=== PATIENT | male | born 1985 | race Caucasian/White ===

== ENCOUNTER 2020-07-30 06:50 | Inpatient (IN) ==
[2020-07-30] MEDS ORDERED: IOPAMIDOL 100 ML BOTTLE IV ONE (06:51)
[2020-07-30] MEDS ORDERED: LACTATED RINGERS 1,000 ML IV ONE ×2 (07:18→07:20)
[2020-07-30] MEDS ORDERED: PROCHLORPERAZINE 10 MG/2 ML VIAL IV ONE (07:18)
[2020-07-30] MEDS ORDERED: diphenhydrAMINE 50 MG/ML VIAL IV ONE (07:18)
--- NOTE | 2020-07-30 07:18 | Emergency Department Note ---
Abdominal Pain HPI General Chief Complaint: Abdominal Pain Stated Complaint: abdominal pain Time Seen by Provider: 07/30/20 07:10 Source: patient Mode of arrival: ambulatory Limitations: no limitations History of Present Illness HPI Narrative: Narrative: Patient is a pleasant 35-year-old male who presents complaint of significant abdominal pain since yesterday morning. He noted that he had been out for a weekend with friends and 2 days ago was feeling perhaps some generalized upset stomach which he had attributed to drinking with friends. The pain progressed and since 24 hours ago has had more significant pain which she notes is worse with getting up and moving about better when he is lying still. He has had decreased appetite but no vomiting. He has not had any burning with urination. Pain seems to be lower in the abdomen but then radiate upwards at this time. No radiation to the back. Notes for moderate degree of discomfort lying still more severe with movements. He was able to notice even minor bumps in the road on the drive to the emergency department today. He has not had fever. He denies any trauma to the abdomen. He has not had prior abdominal surgery. Related Data Home Medications Medication Instructions Recorded Confirmed No Known Home Meds 07/30/20 07/30/20 Allergies Allergy/AdvReac Type Severity Reaction Status Date / Time No Known Drug Allergies Allergy Verified 07/30/20 16:02 Review of Systems ROS ROS Narrative: Narrative: A 10 system review of systems was performed and found to be negative except as outlined above. [facility] Narrative Patient History Narrative: Narrative: Medical/Surgical/Family History All Active Problems (Updated 07/31/20 @ 09:07 by Lance Chance MD) Diverticulitis (Acute) Abdominal pain (Acute) Conjunctivitis (Acute) Poor sleep (Chronic) Depression (Chronic) Anxiety (Chronic) IBS (irritable bowel syndrome) (Chronic) Physical exam (Chronic) Impacted cerumen, bilateral (Chronic) Medical History (Updated 07/31/20 @ 09:07 by Lance Chance MD) Anxiety Depression IBS (irritable bowel syndrome) Impacted cerumen, bilateral Physical exam Poor sleep Surgical History History of surgery (~10/25/06) C3-C4 Family History Mother Alive and well Father Alive and well Sister Alive and well Brother Alive and well Social History Smoking Status: Never smoker Alcohol Intake Frequency: holiday/special occasion only Exam Narrative Narrative: Narrative: General: Alert, speaking full sentences without dyspnea. Lying still on the gurney. Accompanied by his Indy COPEENT: NCAT, PERRL, Oral pharynx with moist mucus membranes. No pharyngeal erythema. No conjunctival pallor Neck: Supple, No lymphadenopathy Chest: Stable Heart: Regular rate and rhythm without murmur Lungs: Clear to auscultation bilaterally Abdomen: Soft, nondistended, generalized discomfort to palpation which is most focused over McBurney's point. Positive rebound tenderness. Positive peritonitis. Negative Rovsing sign. : No bladder distention Back: Nontraumatic, No CVA tenderness to palpation. Skin: No rash or lesion Extremity: No cyanosis or edema, pulses 2+ radial Neurologic: Moves all extremities in appropriate coordinated fashion. General Limitations: no limitations Course Vital Signs Vital signs: Vital Signs Temperature 97.0 F 07/30/20 06:50 Pulse Rate 90 07/30/20 06:50 Respiratory Rate 16 07/30/20 06:50 Blood Pressure 122/79 07/30/20 06:50 Pulse Oximetry (%) 98 07/30/20 06:50 Temperature 98.9 F 07/31/20 08:00 Pulse Rate 77 07/31/20 08:00 Respiratory Rate 18 07/31/20 08:00 Blood Pressure 109/68 07/31/20 08:00 Pulse Oximetry (%) 95 07/31/20 08:00 [facility] MDM Narrative Medical decision making narrative: Narrative: Patient is with clinical evidence of appendicitis. Will complete work-up and ensure that this is not mesenteric adenitis or ascending colitis from etiology such as Crohn's or ulcerative colitis which patient does not give history consistent with. Patient will receive IV antibiotics and surgical consult with admission for acute abdomen. Patient CT demonstrated sigmoid diverticulitis with phlegmon as well as evidence of perforation consistent with physical exam. Dr. Dangelo Rueda was kindly in agreement with plan of admission Patient had ECG time 746 demonstrating sinus rhythm the rate of 62. QRS axis with normal QRS duration normal and narrow. There were no ST or T wave changes concerning for ischemic process. Lab Data Result diagrams: 07/30/20 07:55 07/30/20 07:55 Labs: Lab Results 07/30/20 07/30/20 07/30/20 Range/Units 07:55 07:55 07:55 WBC 10.9 (4.5-11.0) K/mcL RBC 4.36 L (4.50-5.90) M/mcL Hgb 13.4 L (13.5-16.5) g/dL Hct 39.7 L (41.0-55.0) % MCV 91.1 (80.0-100.0) fL MCH 30.7 (26.0-34.0) pg MCHC 33.8 (31.0-36.0) g/dL RDW 12.4 (11.5-14.5) % Plt Count 110 L (140-440) K/mcL MPV 12.0 H (7.4-10.4) fL Neut % (Auto) 82.0 H (38.0-78.0) % Lymph % (Auto) 11.6 L (15.0-49.0) % Sutter % (Auto) 6.2 (1.0-12.0) % Eos % (Auto) 0 (0.0-7.0) % Baso % (Auto) 0.2 (0.0-2.0) % Lymph # (Auto) 1.26 L (1.50-4.80) K/mcL Sutter # (Auto) 0.67 (0.10-0.90) K/mcL Eos # (Auto) 0 (0.00-0.70) K/mcL Baso # (Auto) 0.02 (0.00-0.20) K/mcL Absolute Neutrophils 8.90 H (1.80-8.00) K/mcL Sodium 137 (133-145) mmol/L Potassium 4.0 (3.3-5.1) mmol/L Chloride 104 (96-108) mmol/L Carbon Dioxide 23 (22-30) mmol/L Anion Gap 10.0 (8.0-16.0) BUN 15 (6-20) mg/dL Creatinine 1.0 (0.7-1.2) mg/dL GFR Calculation 97 Glucose 102 (70-105) mg/dL Calcium 9.1 (8.6-10.4) mg/dL Total Bilirubin 0.7 (0.1-1.0) mg/dL AST 12 (<40) U/L ALT 13 (<40) U/L Alkaline Phosphatase 51 (39-117) U/L Troponin T < 0.01 (<0.03) ng/mL Total Protein 6.2 (5.9-8.4) gm/dL Albumin 3.9 (3.2-5.2) gm/dL Globulin 2.3 (2.2-3.7) gm/dL Albumin/Globulin Ratio 1.7 (1.0-2.3) Lipase 17 (7-60) U/L ED POC Tests ED POC Tests: LENIN - SARS Antigen Negative Discharge Plan Patient/Caregiver Discharge Instructions Pt seen by [facility]/PA only: No Clinical Impression: Diverticulitis, Abdominal pain Patient Disposition: Xfer As Outpt/Obs ([facility]) Condition: Fair Discharge Date/Time: 07/30/20 15:20
[2020-07-30 08:59] LABS: Basophils # (Auto) 0.02 K/mcL (0.00-0.20); Basophils % (Auto) 0.2 % (0.0-2.0); Eosinophils # (Auto) 0 K/mcL (0.00-0.70); Eosinophils % (Auto) 0 % (0.0-7.0); Hematocrit 39.7 % (41.0-55.0); Hemoglobin 13.4 g/dL (13.5-16.5); Lymphocytes # (Auto) 1.26 K/mcL (1.50-4.80); Lymphocytes % (Auto) 11.6 % (15.0-49.0); Mean Cell Volume 91.1 fL (80.0-100.0); Mean Corpuscular HGB Conc 33.8 g/dL (31.0-36.0); Monocytes # (Auto) 0.67 K/mcL (0.10-0.90); Monocytes % (Auto) 6.2 % (1.0-12.0); Platelet Count 110 K/mcL (140-440); RBC 4.36 M/mcL (4.50-5.90); Red Cell Distribution Width 12.4 % (11.5-14.5); WBC 10.9 K/mcL (4.5-11.0)
[2020-07-30 09:08] LABS: ALT/SGPT 13 U/L (<40); AST/SGOT 12 U/L (<40); Albumin 3.9 gm/dL (3.2-5.2); Albumin/Globulin Ratio 1.7 (1.0-2.3); Alkaline Phosphatase 51 U/L (39-117); Bilirubin,Total 0.7 mg/dL (0.1-1.0); Blood Urea Nitrogen 15 mg/dL (6-20); Calcium 9.1 mg/dL (8.6-10.4); Carbon Dioxide 23 mmol/L (22-30); Chloride 104 mmol/L (96-108); Globulin 2.3 gm/dL (2.2-3.7); Glomerular Filtration Rate 97; Glucose 102 mg/dL (70-105)
--- NOTE | 2020-07-30 10:14 | Cat Scan Report ---
CLINICAL INFORMATION: Lower abdominal pain COMPARISON: None. TECHNIQUE: Following enteric contrast, 80 cc of Isovue-370 were injected intravenously, and 60 seconds later, 0.625 mm helical slices were obtained from the mid heart through the subtrochanteric regions. Following reconstruction, 2.5 mm sagittal, coronal and axial reformatted images were processed and reviewed at bone, lung and soft tissue windows. Five minutes later, 0.625 mm helical slices were obtained from the mid heart through the kidneys and viewed at soft tissue windows.The exam was performed using radiation dose optimization techniques including, but not limited to, automated exposure control, adjustment of the mA and/or kV according to patient size and use of iterative reconstruction technique. FINDINGS: Lung bases show no abnormality-no effusion. The visualized heart is normal. Abdominal images show minimal fatty change within the liver, but no focal hepatic lesion. Gallbladder and bile ducts are normal CBD is 5 mm. Tiny (2 mm) nonobstructing stones are seen within the inferior calyces of both kidneys. No other renal abnormality. Both adrenal glands, spleen, pancreas and aorta, including aortic branches are normal in size configuration and attenuation without focal lesion. Pelvic images show prostate, seminal vesicles and urinary bladder are normal. There is mild diffuse wall thickening of the urinary bladder. Moderate diverticulitis involving a 6 cm segment of the mid sigmoid colon appreciated. In this region, there are multiple sigmoid diverticuli with alignment wall thickening and a 5 cm phlegmon in the anterior perisigmoid fat. Small amount of extracolonic gas is compatible with microperforation. Small amount of free fluid in the deep true pelvis is limited to the sigmoid colon inflammation. The remaining large bowel, and small bowel are normal. The appendix is located in a very high position in the medial pericecal region adjacent the liver. Stomach is grossly normal. Bone windows show no osseous abnormality IMPRESSION: Moderate diverticulitis involving the mid sigmoid colon with a 5 cm phlegmon in the anterior perisigmoid fat and colonic microperforation. Tiny nonobstructing stones within the inferior calyces of both kidneys-both less than 2 mm Mild diffuse urinary bladder wall thickening is likely sympathetic related adjacent sigmoid inflammation. Please correlate urinalysis to ensure the absence of cystitis. Interpreted and Authenticated by: Sacha Pérez 07/30/20
[2020-07-30] MEDS ORDERED: CIPROFLOXACIN 400 MG/200 ML BAG IV ONE (10:38)
[2020-07-30] MEDS ORDERED: metroNIDAZOLE 500 MG/100 ML BAG IV SCH ×3 (10:45→16:00)
[2020-07-30] MEDS: ONDANSETRON 4 MG/2 ML VIAL IV PRN ×2 (11:05→17:34)
[2020-07-30] MEDS: HYDROmorphone 0.5 MG/0.5 ML SYRINGE IV PRN ×4 (11:05→23:26)
[2020-07-30] MEDS ORDERED: morphine 4 MG/ML VIAL IV PRN (13:46)
[2020-07-30] MEDS ORDERED: ONDANSETRON 4 MG/2 ML VIAL IV PRN (13:46)
--- NOTE | 2020-07-30 13:46 | General Surg History&Physical ---
HPI History of Present Illness Patient information: Note initiated : 07/30/20 at 1:42 pm Service Date, if different from initiated Date: [] Patient: Leonela Ernst a 35 y/o M admitted on for Abdominal Pain . Chief Complaint: Bilateral lower quadrant abdominal pain History of present illness: Mr. Ernst is a 35 year old M who presents with 1 day history of slowly progressing bilateral lower quadrant abdominal pain. Reports he had a similar episode a few months ago, not as severe and resolved on its own. He reports that this 1 came on is gradually gotten worse not associated with nausea vomiting fevers or chills. He reports that as mid to mor e on the right side, however he is tender on both sides of the lower abdomen. He reports a positive family history of a mother with diverticulitis. Review of Systems Review of systems: All systems are reviewed, negative other than above PFSH PFSH All Active Problems Acute appendicitis (Acute) Conjunctivitis (Acute) Poor sleep (Chronic) Depression (Chronic) Anxiety (Chronic) IBS (irritable bowel syndrome) (Chronic) Physical exam (Chronic) Impacted cerumen, bilateral (Chronic) Medical History Anxiety Depression IBS (irritable bowel syndrome) Impacted cerumen, bilateral Physical exam Poor sleep Surgical History History of surgery (~10/25/06) C3-C4 Family History Mother Alive and well Father Alive and well Sister Alive and well Brother Alive and well Social History marital status: physical activity: weight training alcohol intake frequency: holiday/special occasion only MEDS/ALLERGIES Home Medications and Allergies Home Medications Medication Instructions Recorded Confirmed Type No Known Home Meds 07/30/20 07/30/20 History Allergies Allergy/AdvReac Type Severity Reaction Status Date / Time No Known Drug Allergies Allergy Verified 07/30/20 06:52 Physical Examination Vital Signs Vital signs: Temp Pulse Resp BP Pulse Ox 97.0 F 90 16 109/64 98 07/30/20 06:50 07/30/20 06:50 07/30/20 06:50 07/30/20 13:32 07/30/20 06:50 General physical appearance General physical exam: well developed, well nourished and no distress Eyes Eye exam: PERRL and normal ocular movement ENT ENT exam: normal pinna, normal nares, normal mucosa, no hearing loss and no congestion Head Head exam IM: Present atraumatic and normocephalic Neck Neck exam: no masses, no bruits, trachea midline, no lymphadenopathy and no venous distension Cardiovascular Cardiovascular exam IM: Present normal rate and rhythm Respiratory Respiratory exam: normal expansion, normal respiratory effort, clear to percussion and clear to auscultation Abdomen Abdomen: Present soft, tender (Tender to palpation bilateral lower quadrants, no rebound) and bowel sounds; Absent rigid and rebound Hernia: Present none Genitourinary Genitourinary (Male): Present normal penis with no external lesions Rectum Rectum: Present normal sphincter tone, no hemorrhoids, no tenderness, no masses and no bleeding Integumentary Integumentary: Present no rash, no growths and no abnormal pigmentation Neurologic Neurologic: Present normal coordination and normal sensation Musculoskeletal Musculoskeletal: Present normal gait and normal posture Psychiatric Psychiatric: Present oriented to time, oriented to person, oriented to place, speech is normal and memory intact Results Labs Result diagrams: 07/30/20 07:55 07/30/20 07:55 Labs: Abnormal lab results 07/30/20 Range/Units 07:55 RBC 4.36 L (4.50-5.90) M/mcL Hgb 13.4 L (13.5-16.5) g/dL Hct 39.7 L (41.0-55.0) % Plt Count 110 L (140-440) K/mcL MPV 12.0 H (7.4-10.4) fL Neut % (Auto) 82.0 H (38.0-78.0) % Lymph % (Auto) 11.6 L (15.0-49.0) % Lymph # (Auto) 1.26 L (1.50-4.80) K/mcL Absolute Neutrophils 8.90 H (1.80-8.00) K/mcL Diabetes panel 07/30/20 Range/Units 07:55 Sodium 137 (133-145) mmol/L Potassium 4.0 (3.3-5.1) mmol/L Chloride 104 (96-108) mmol/L Carbon Dioxide 23 (22-30) mmol/L BUN 15 (6-20) mg/dL Creatinine 1.0 (0.7-1.2) mg/dL Glucose 102 (70-105) mg/dL Calcium 9.1 (8.6-10.4) mg/dL AST 12 (<40) U/L ALT 13 (<40) U/L Alkaline Phosphatase 51 (39-117) U/L Total Protein 6.2 (5.9-8.4) gm/dL Albumin 3.9 (3.2-5.2) gm/dL Calcium panel 07/30/20 Range/Units 07:55 Calcium 9.1 (8.6-10.4) mg/dL Albumin 3.9 (3.2-5.2) gm/dL Pituitary panel 07/30/20 Range/Units 07:55 Sodium 137 (133-145) mmol/L Potassium 4.0 (3.3-5.1) mmol/L Chloride 104 (96-108) mmol/L Carbon Dioxide 23 (22-30) mmol/L BUN 15 (6-20) mg/dL Creatinine 1.0 (0.7-1.2) mg/dL Glucose 102 (70-105) mg/dL Calcium 9.1 (8.6-10.4) mg/dL Adrenal panel 07/30/20 Range/Units 07:55 Sodium 137 (133-145) mmol/L Potassium 4.0 (3.3-5.1) mmol/L Chloride 104 (96-108) mmol/L Carbon Dioxide 23 (22-30) mmol/L BUN 15 (6-20) mg/dL Creatinine 1.0 (0.7-1.2) mg/dL Glucose 102 (70-105) mg/dL Calcium 9.1 (8.6-10.4) mg/dL Total Bilirubin 0.7 (0.1-1.0) mg/dL AST 12 (<40) U/L ALT 13 (<40) U/L Alkaline Phosphatase 51 (39-117) U/L Total Protein 6.2 (5.9-8.4) gm/dL Albumin 3.9 (3.2-5.2) gm/dL All other labs normal. Imaging CT scan - abdomen: image reviewed (Sigmoid diverticulitis with phlegmon and microperforation, no free perforation, no free air.) A/P Narrative A/P Narrative: This is a pleasant 36-year-old gentleman with a significant family medical history of positive diverticulitis who presents with 1 day history of sigmoid diverticulitis. He has no fever chills nausea or vomiting. He has no signs of free perforation at this time. Plan: Met, n.p.o., IV fluids and IV antibiotics. I will follow physical exam to determine need for surgery. Thank you for this consultation Time Spent With Patient Time: Total time spent is greater than 50% in coordination of care (as documented) at patient's floor/unit and/or counseling patient:
[2020-07-30] MEDS ORDERED: LEVOFLOXACIN 500 MG/100 ML BAG IV SCH (14:00)
[2020-07-30] MEDS: LACTATED RINGERS 1,000 ML IV SCH (15:49)
[2020-07-30] MEDS: LEVOFLOXACIN 500 MG/100 ML BAG IV SCH (15:50)
[2020-07-30] MEDS: metroNIDAZOLE 500 MG/100 ML BAG IV SCH (22:15)
[2020-07-31] MEDS: LACTATED RINGERS 1,000 ML IV SCH ×5 (01:34→20:35)
[2020-07-31] MEDS: HYDROmorphone 0.5 MG/0.5 ML SYRINGE IV PRN ×4 (04:19→20:35)
[2020-07-31] MEDS: metroNIDAZOLE 500 MG/100 ML BAG IV SCH ×3 (06:06→22:08)
[2020-07-31] MEDS: LEVOFLOXACIN 500 MG/100 ML BAG IV SCH (08:04)
--- NOTE | 2020-07-31 08:55 | General Surgery Progress Note ---
SUBJECTIVE Subjective Patient information: Note initiated : 07/31/20 at 8:54 am Service Date, if different from initiated Date: [] Patient: Leonela Ernst 35 y/o M admitted on 07/30/20 for Abdominal Pain . Chief Complaint: [] Interval history: Hospital day #1 admitted with sigmoid diverticulitis with a phlegmon. Patient feels better today, less abdominal pain. He has no nausea vomiting fevers or chills. Constitutional Vitals: Vital Signs Temp Pulse Resp BP Pulse Ox 98.9 F 77 18 109/68 95 07/31/20 08:00 07/31/20 08:00 07/31/20 08:00 07/31/20 08:00 07/31/20 08:00 Period Temp Pulse Resp BP Sys/Baker Pulse Ox Last 24 Hr 97.0 F-100.6 F 70-90 14-24 103-123/57-73 95-98 Intake and Output 07/30/20 07/31/20 07/31/20 21:59 05:59 13:59 Intake Total 1100 1100 100 Output Total 300 300 Balance 800 800 100 Weight 197 lb 3.2 oz Intake & Output: Intake & Output 07/30/20 07/31/20 07/31/20 21:59 05:59 13:59 Intake Total 1100 1100 100 Output Total 300 300 Balance 800 800 100 Weight 197 lb 3.2 oz Intake: IV 1100 1100 100 Lactated Ringers 1,000 ml @ 125 1000 1000 mls/hr IV .Q8H [facility] Rx#: [id number] Oral 0 Output: Void Amount 300 300 Other: Urine Appearance Clear Clear Urine Color Dark Yellow Light Concepcion General appearance: cooperative and no acute distress GI/Abdominal GI/Abdominal exam: Present soft and tenderness (Improved tender to palpation); Absent distended A/P Narrative A/P Narrative: Doing as expected. will advance clean diet as tolerated today, continue with IV antibiotics. Time Spent With Patient Time: Total time spent is greater than 50% in coordination of care (as documented) at patient's floor/unit and/or counseling patient:
[2020-08-01] MEDS: LACTATED RINGERS 1,000 ML IV SCH (05:18)
[2020-08-01] MEDS: metroNIDAZOLE 500 MG/100 ML BAG IV SCH ×2 (05:51→14:47)
[2020-08-01] MEDS ORDERED: LACTATED RINGERS 1,000 ML IV SCH (08:20)
--- NOTE | 2020-08-01 08:22 | General Surgery Progress Note ---
SUBJECTIVE Subjective Patient information: Note initiated : 08/01/20 at 8:20 am Service Date, if different from initiated Date: [] Patient: Leonela Ernst 35 y/o M admitted on 07/30/20 for Abdominal Pain . Chief Complaint: [] Interval history: Patient feels somewhat better this morning, has positive flatus. Decreased abdominal pain, no nausea or vomiting. Constitutional Vitals: Vital Signs Temp Pulse Resp BP Pulse Ox 99.4 F H 70 20 104/65 97 08/01/20 07:12 08/01/20 07:12 08/01/20 04:27 08/01/20 07:12 08/01/20 07:12 Period Temp Pulse Resp BP Sys/Baker Pulse Ox Last 24 Hr 98.0 F-100.6 F 70-77 18-24 104-117/65-78 95-98 Intake and Output 07/31/20 08/01/20 08/01/20 21:59 05:59 13:59 Intake Total 1900 1400 100 Output Total 2325 825 Balance -425 575 100 Weight 198 lb 3.2 oz Intake & Output: Intake & Output 07/31/20 08/01/20 08/01/20 21:59 05:59 13:59 Intake Total 1900 1400 100 Output Total 2325 825 Balance -425 575 100 Weight 198 lb 3.2 oz Intake: IV 1100 1100 100 Lactated Ringers 1,000 ml @ 125 1000 1000 mls/hr IV .Q8H [facility] Rx#: [id number] Oral 800 300 Output: Void Amount 2325 825 Other: Meal Lunch Percent of Meal Consumed 100% Feeding Ability Independent Urine Appearance Clear Urine Color Bright Yellow Dark Concepcion Urine Odor Normal General appearance: cooperative; no no acute distress GI/Abdominal GI/Abdominal exam: Present normal bowel sounds, soft and tenderness (Decreased tender to palpation); Absent distended A/P Narrative A/P Narrative: Admitted for sigmoid diverticular phlegmon. Patient is doing better, decreased abdominal pain. Advance diet as tolerated. If tolerates will change to p.o. antibiotics and dis charge later today. Time Spent With Patient Time: Total time spent is greater than 50% in coordination of care (as documented) at patient's floor/unit and/or counseling patient:
[2020-08-01 08:57] LABS: Basophils # (Auto) 0.01 K/mcL (0.00-0.20); Basophils % (Auto) 0.1 % (0.0-2.0); Eosinophils # (Auto) 0.01 K/mcL (0.00-0.70); Eosinophils % (Auto) 0.1 % (0.0-7.0); Hematocrit 38.6 % (41.0-55.0); Hemoglobin 12.7 g/dL (13.5-16.5); Lymphocytes # (Auto) 0.95 K/mcL (1.50-4.80); Lymphocytes % (Auto) 14.1 % (15.0-49.0); Mean Cell Volume 93.2 fL (80.0-100.0); Mean Corpuscular HGB Conc 32.9 g/dL (31.0-36.0); Mean Platelet Volume 11.7 fL (7.4-10.4); Monocytes # (Auto) 0.35 K/mcL (0.10-0.90); Monocytes % (Auto) 5.2 % (1.0-12.0); Neutrophils % (Auto) 80.5 % (38.0-78.0); Platelet Count 121 K/mcL (140-440); RBC 4.14 M/mcL (4.50-5.90); Red Cell Distribution Width 12.6 % (11.5-14.5); WBC 6.7 K/mcL (4.5-11.0)
[2020-08-01] MEDS: LEVOFLOXACIN 500 MG/100 ML BAG IV SCH (09:32)
--- NOTE | 2020-08-01 12:40 | Discharge Summary ---
Discharge Provider Provider Patient information: Note initiated : 08/01/20 at 12:39 pm Service Date, if different from initiated Date: [] Patient: Leonela Ernst 35 y/o M admitted on 07/30/20 for Abdominal Pain . Chief Complaint: [] Date of admission: 07/30/20 15:20 Discharge date: 08/01/20 Primary care physician: Lia Xiao Consults: 07/30/20 10:40 Consult to Physician [CONS] Stat Comment: Consulting Provider: Dangelo Rueda Reason For Exam: Physician to Consult COURSE Hospital Course Hospital course: Patient admitted with acute diverticulitis with sigmoid phlegmon. Patient was made n.p.o., then diet was advanced as pain decreased. Discharge diagnosis: Sigmoid diverticulitis Time Spent with Patient Time attestation: Total time spent providing and/or coordinating discharge services: Physical Examination Vital Signs Vital signs: Temp Pulse Resp BP Pulse Ox 98.4 F 74 20 119/78 98 08/01/20 12:00 08/01/20 12:00 08/01/20 12:00 08/01/20 12:00 08/01/20 12:00 Discharge Plan Patient/Caregiver Discharge Instructions Activity: increase activity as tolerated Diet: Regular Diet Activity Restrictions/Additional Instructions: Low residual diet for the next week, then increase fiber in diet. Follow-up with me in 2 to 3 weeks. Prescriptions: New levofloxacin 750 mg tablet 750 mg PO Q24H Qty: 8 RF: 0 metronidazole [Flagyl] 500 mg tablet 500 mg PO TID 8 Days Qty: 24 RF: 0 Follow Up Plan Follow up with: Dangelo Rueda MD [Physician] - Lia Xiao ARNP [Primary Care Provider] - Patient Disposition: Home, Self-Care Prognosis: Fair Discharge Orders: Discharge Order (Routine); Ordered 08/01/20 Ordered By: Dangelo Rueda Pending Pending Pending: Resuscitation Status Full Code Diet Regular Diet Start Lili Aug 01 818 Hydromorphone HCl (Hydromorphone 0.5 Mg/0.5 Ml Syringe) 0.5 mg IV Q2HP PRN; Protocol PRN Reason: Per Pain Protocol Last Admin: 07/31/20 20:35 Dose: 0.5 mg Documented by: Cosigned by: [email or web address] Admin: 07/31/20 13:51 Dose: 0.5 mg Documented by: Admin: 07/31/20 09:49 Dose: 0.5 mg Documented by: Admin: 07/31/20 04:19 Dose: 0.5 mg Documented by: Cosigned by: DAKOTA Admin: 07/30/20 23:26 Dose: 0.5 mg Documented by: Cosigned by: DAKOTA Admin: 07/30/20 20:50 Dose: 0.5 mg Documented by: Cosigned by: DAKOTA Levofloxacin (Levaquin) 500 mg in 100 mls @ 100 mls/hr IV Q24H [facility]; Protocol Last Infusion: 08/01/20 10:40 Dose: 0 mls/hr Documented by: Admin: 08/01/20 09:32 Dose: 100 mls/hr Documented by: Cosigned by: Infusion: 07/31/20 09:35 Dose: 0 mls/hr Documented by: Admin: 07/31/20 08:04 Dose: 100 mls/hr Documented by: Infusion: 07/30/20 16:50 Dose: 0 mls/hr Documented by: Admin: 07/30/20 15:50 Dose: 100 mls/hr Documented by: VIRGILIO Metronidazole (Flagyl) 500 mg in 100 mls @ 100 mls/hr IV Q8H [facility]; Protocol Last Infusion: 08/01/20 06:51 Dose: 0 mls/hr Documented by: Admin: 08/01/20 05:51 Dose: 100 mls/hr Documented by: Cosigned by: DAKOTA Infusion: 07/31/20 23:08 Dose: 100 mls/hr Documented by: Cosigned by: DAKOTA Admin: 07/31/20 22:08 Dose: 100 mls/hr Documented by: Cosigned by: DAKOTA Infusion: 07/31/20 15:04 Dose: 0 mls/hr Documented by: YEFRI Cosigned by: KEMI Admin: 07/31/20 14:04 Dose: 100 mls/hr Documented by: YEFRI Cosigned by: KEMI Infusion: 07/31/20 07:10 Dose: 100 mls/hr Documented by: Admin: 07/31/20 06:06 Dose: 100 mls/hr Documented by: Cosigned by: DAKOTA Infusion: 07/30/20 23:15 Dose: 100 mls/hr Documented by: Cosigned by: DAKOTA Admin: 07/30/20 22:15 Dose: 100 mls/hr Documented by: Cosigned by: DAKOTA Ondansetron HCl (Ondansetron 4 Mg/2 Ml Vial) 4 mg IV Q6HP PRN PRN Reason: Nausea And Vomiting Last Admin: 07/31/20 09:49 Dose: 4 mg Documented by: JUAN Shift Summary 08/01/20 03:29 Shift Summary by Yany Castelan Diagnosis: Diverticulitis (mid sigmoid colon); colonic microperfusion Brief history of present illness: Slowly progressing bilateral lower quadrant abdominal pain x 3 days; improving tenderness to palpation; denies n/v; familial history of diverticulitis; personal chronic history of IBS and impacted cerumen. Orientation: A&Ox4; calls appropriately. Oxygen/Airway needs: O2 sats > 90% on RA. Ambulation status: Independent. Voiding: Up to bathroom; voids in urinal. IV access: 20g to RFA; asymptomatic; running LR @ 125 mL/hr. Pain: 2-5/10, controlled with Dilaudid. Pt reports feeling nauseated after Dilaudid, slow IV push helps prevent nausea, Zofran IVP Q6hP available for use prior to Dilaudid. Discharge plans: Continuing to monitor pt for s/sx of worsening microperforation/Diverticulitis at this time. Additional Comments: Full liquids, tolerating well. Initialized on 08/01/20 03:29 - END OF NOTE
== END 2020-08-01 15:00 | disposition home or self-care (01) | DRG 392 ==
LOC: ED 06:50 → MEDSUR 15:20 → ED 15:20
PROVIDERS: ADMIT Surgery; ATTEND Surgery